=== PATIENT | male | born 1990 | race Caucasian/White ===

== ENCOUNTER 2017-12-04 16:24 | Emergency (ER) | payer OTHER, MEDICAID ==
[2017-12-04 17:07] LABS: PLATELET COUNT 247 10^3/uL (150-400)
--- NOTE | 2017-12-04 17:11 | EDPHY ---
H & P Stated Complaint: Found under a blanket in field talking to cows per [employer] - Personal History Current Tetanus/Diphtheria Vaccine: Yes Current Tetanus Diphtheria and Acellular Pertussis (TDAP): Yes - Medical/Surgical History Hx Asthma: No Hx Chronic Respiratory Disease: No Hx Diabetes: No Hx Cardiac Disease: No Hx Renal Disease: No Hx Cirrhosis: No Hx Alcoholism: No Hx HIV/AIDS: No Hx Splenectomy or Spleen Trauma: No Other PMH: ankle surgery - Social History Smoking Status: Never smoked Time Seen by Provider: 12/04/17 16:39 HPI/ROS: Chief Complaint: Altered mental status HPI: 27-year-old male found laying on open space in the field under a blanket talking to cow's. Patient had rambling conversation and seemed to be delusional per police. He was placed on a mental health hold. Patient right now denies being suicidal. He is not depressed. Denies auditory or visual hallucinations. Does not have a history of mental illness per his report. Denies alcohol use or smoking. Has recently quit using marijuana. No fevers or chills. No falls or head injuries. He is awake and alert. He is loc for safety. He is oriented to person place and time. ROS: 10 point Review of Systems is negative except as noted in the HPI. PMH: Denies Social History: No smoking, no alcohol, former marijuana user Family History: non-contributory Physical Exam: Gen: Awake, Alert, disheveled, mildly pressured speech HEENT: Nose: no rhinorrhea Eyes: PERRLA, EOMI Mouth: Moist mucosa Neck: Supple, no JVD Chest: nontender, lungs clear to auscultation Heart: S1, S2 normal, no murmur Abd: Soft, non-tender, no guarding Back: no CVA tenderness, no midline tenderness Ext: no edema, non-tender Skin: no rash Neuro: CN II-XII intact, Sensation grossly intact, Strength 5/5 in bilateral upper and lower extremities (Mick Chung) Constitutional: Initial Vital Signs Temperature (C) 36.6 C 12/04/17 16:24 Heart Rate 69 12/04/17 16:24 Respiratory Rate 19 12/04/17 16:24 Blood Pressure 117/96 H 12/04/17 16:24 O2 Sat (%) 95 12/04/17 16:24 O2 Delivery Mode Room Air Allergies/Adverse Reactions: No Known Allergies Allergy (Verified 03/26/16 18:40) Home Medications: Medication Instructions Recorded Cyclobenzaprine [Flexeril 10 MG 10 mg PO TID #90 tab 04/03/16 (*)] Haloperidol [Haldol 10 MG (*)] 20 mg PO HS #60 tab 04/03/16 Propranolol HCl [Inderal 20mg (*)] 20 mg PO BID PRN #60 tab 04/03/16 Trihexyphenidyl HCl 5 mg PO BID #60 tab 04/03/16 [Trihexyphenidyl 2MG (*)] Zolpidem Tartrate [Ambien 10 mg] 10 mg PO HS PRN #30 tablet 04/03/16 traZODone [traZODone 150MG (*)] 150 mg PO HS #30 tab 04/03/16 Medical Decision Making ED Course/Re-evaluation: Patient is medically cleared for mental health evaluation. Patient has been seen by mental health military pay clerk. Patient is gravely disabled from acute psychosis. They will look for placement. Dr. Romano, psychiatry has been consulted. She will possibly be able to accept for transfer in the morning. At this time she is requesting 2 mg of oral Ativan and 10 mg of oral Zyprexa if the patient is willing to take it. [address] patient signed out to Dr. Cancino pending placement. (Mick Chung) 0622: No acute events overnight. Patient has been sleeping. Patient waiting inpatient psychiatric hospitalization. Medically cleared. Patient signed over to Dr. Watkins at 7:00 a.m. shift change. Acutely psychotic. (Jaswinder Cancino) - Data Points Laboratory Results: Laboratory Results 12/04/17 16:37 12/04/17 16:37 Medications Given: Discontinued Medications Lorazepam (Ativan) 2 mg PO EDNOW ONE Stop: 12/04/17 21:54 Last Admin: 12/04/17 22:34 Dose: 2 mg Olanzapine (Olanzapine) 10 mg PO ONCE ONE Stop: 12/04/17 21:54 Last Admin: 12/04/17 22:35 Dose: 10 mg Departure - Departure Clinical Impression: Acute psychosis Condition: Fair Referrals: Patient,NotPresent [Primary Care Provider] - As per Instructions
[2017-12-04] MEDS: OLANZapine 5 MG TAB PO ONE ×2 (22:29→22:35)
[2017-12-04] MEDS: LORazepam 1 MG TAB PO ONE ×2 (22:29→22:34)
[2017-12-05 07:54] VITALS: RESP 16
[2017-12-05 12:23] VITALS: BP 109/86; PULSE 90; TEMP 98.2; O2SAT 97
== END 2017-12-05 12:21 ==
DX: F23 Brief psychotic disorder (principal)
CPT/HCPCS: 80305; G0480

== ENCOUNTER 2018-09-14 18:05 | Inpatient (IN) | payer OTHER ==
[2018-09-14] MEDS ORDERED: HALOPERIDOL LACT 5 MG/ML INJ IM ONE (18:16)
--- NOTE | 2018-09-14 18:20 | EDPHY ---
H & P - Medical/Surgical History Hx Asthma: No Hx Chronic Respiratory Disease: No Hx Diabetes: No Hx Cardiac Disease: No Hx Renal Disease: No Hx Cirrhosis: No Hx Alcoholism: No Hx HIV/AIDS: No Hx Splenectomy or Spleen Trauma: No Other PMH: ankle surgery - Social History Smoking Status: Never smoked Time Seen by Provider: 09/14/18 18:09 HPI/ROS: CHIEF COMPLAINT: M1 HISTORY OF PRESENT ILLNESS: 28-year-old homeless male arrives via police on an M1 hold from [facility] after he was noted to be smelling of urine, rapid, pressured speech with flight of ideas, deemed to be gravely disabled. Patient is unable to provide any information as he has rapid speech, flight of ideas. He denies suicidal or homicidal ideation. No reports of trauma. No falls. REVIEW OF SYSTEMS: 10 systems reviewed and negative with the exception of the elements mentioned in the history of present illness PAST MEDICAL & SURGICAL HISTORY: No pertinent medical or surgical history SOCIAL HISTORY: Denies illicit drug use PHYSICAL EXAM (Prior to examination, patient consented to physical exam, hands were washed and my usual and customary physical exam procedures followed) 1) GENERAL: Poorly kept, 2) HEAD: Normocephalic, atraumatic, no abrasion laceration. 3) HEENT: Pupils equal, round, reactive to light bilaterally. Sclera anicteric. Nasopharynx, oropharynx, clear, no lesions. Moist mucous membranes. E 4) NECK: Full range of motion, no meningeal signs. 5) LUNGS: Clear auscultation bilaterally, no wheezes, no rhonchi, no retractions. 6) HEART: Regular rate and rhythm, no murmur, no heave, no gallop. 7) ABDOMEN: No guarding, no rebound, no focal tenderness, 8) MUSCULOSKELETAL: Moving all extremities, no focal areas of tenderness, no obvious trauma. No peripheral edema or discoloration. 9) BACK:, no obvious trauma, no visual or palpable abnormality. 10) SKIN: No rash, no petechiae. 11) Psychiatric: He is agitated, has rapid pressured speech with flight of ideas, appears to be responding to internal stimuli. DIFFERENTIAL DIAGNOSIS: In no particular include but limited to psychosis, zenobia, depression, polysubstance abuse (Obey Breen) Constitutional: Initial Vital Signs Temperature (C) 36.8 C 09/14/18 18:05 Heart Rate 136 H 09/14/18 18:05 Respiratory Rate 20 09/14/18 18:05 Blood Pressure 156/119 H 09/14/18 18:05 O2 Sat (%) 94 09/14/18 18:05 O2 Delivery Mode Room Air Allergies/Adverse Reactions: No Known Allergies Allergy (Verified 03/26/16 18:40) Home Medications: Medication Instructions Recorded Cyclobenzaprine [Flexeril 10 MG 10 mg PO TID #90 tab 04/03/16 (*)] Haloperidol [Haldol 10 MG (*)] 20 mg PO HS #60 tab 04/03/16 Propranolol HCl [Inderal 20mg (*)] 20 mg PO BID PRN #60 tab 04/03/16 Trihexyphenidyl HCl 5 mg PO BID #60 tab 04/03/16 [Trihexyphenidyl 2MG (*)] Zolpidem Tartrate [Ambien 10 mg] 10 mg PO HS PRN #30 tablet 04/03/16 traZODone [traZODone 150MG (*)] 150 mg PO HS #30 tab 04/03/16 Medical Decision Making ED Course/Re-evaluation: 6:19 p.m.: Patient is acutely agitated, appears to be acutely psychotic. There is no evidence of acute head injury. Will administer intramuscular Haldol in order to more adequately assess patient and obtain diagnostic studies. I reviewed his old medical records. I saw this patient independently based on established practice protocols. Care of patient under supervision of secondary supervising physician Dr Kameron Roman with whom I discussed case. 7:30 p.m.: Re-evaluation, patient calm cooperative 9 pm: calm, cooperative Midnight: Care turned over to Dr. Jaswinder Cancino (Obey Breen Trisha) I did not see this patient while he was in the emergency department. However his care was discussed with the PA while the patient was in the department. I agree with treatment plan and management (Kameron Roman) 0701: Patient here on M1 hold gravely disable, psychotic. Pending pending placement. Signed over at 7:00 a.m. Shift change to Dr. Dillard. (Jaswinder Cancino) Other Provider: I assumed care of the patient at 0700am. 9:00 a.m.: The patient has been accepted for inpatient psychiatric hospitalization at [facility] by Delvis Timmons. I have filled out the EMTALA transfer form. (Jin Dillard) - Data Points Laboratory Results: Laboratory Results 09/14/18 18:14 09/14/18 18:14 09/15/18 05:00 Urine Opiates Screen NEGATIVE (NEGATIVE) Urine Barbiturates NEGATIVE (NEGATIVE) Ur Phencyclidine Scrn NEGATIVE (NEGATIVE) Ur Amphetamine Screen NEGATIVE (NEGATIVE) U Benzodiazepines Scrn NEGATIVE (NEGATIVE) Urine Cocaine Screen NEGATIVE (NEGATIVE) U Marijuana (THC) Screen NEGATIVE (NEGATIVE) Medications Given: Discontinued Medications Haloperidol Lactate (Haldol Injection) 5 mg IM EDNOW ONE Stop: 09/14/18 18:17 Last Admin: 09/14/18 18:28 Dose: 5 mg Departure - Departure Disposition: [facility] IP Clinical Impression: Psychosis Condition: Fair
[2018-09-14 18:22] LABS: PLATELET COUNT 339 10^3/uL (150-400)
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
--- NOTE | 2018-09-15 09:44 | ASMTTCLDSP ---
TLC Discharge Disposition Disposition: Answers: Admit Disposition Notes: Notes: Admit 3N. Discharge Concerns/Recommendations: Notes: In consultation with [facility] ED physician, Jeff Dillard MD and on-call advanced psychiatric nurse practitioner, Delvis Timmons APN, both concurred that pt appears to meet 27-65 criteria requiring psychiatric hospitalization as pt appears to be gravely disabled due to a mental illness condition. Pt unable to sign the 3N prohibited belongings list while in the ED. Was patient given the Answers: Yes Inpatient Behavioral Health Prohibited Belongings List while in the ED? For inpatient Delvis Timmons APN admission, the following psychiatrist agreed to accept patient for admission to Behavioral Health ([facility]): Type of Hold: Answers: M1/72-hour Hold Hold initiated by: Answers: Police Date Signed: 09/15/2018 09:43 AM Electronically Signed By:Glen Spear
[2018-09-15] MEDS ORDERED: OLANZapine DISINTEGR 10 MG TAB PO PRN (10:53)
[2018-09-15] MEDS ORDERED: NICOTINE POLACRILEX 2 MG GUM B PRN (10:53)
[2018-09-15] MEDS ORDERED: MAG HYDROX/AL HYDROX/SIMETH 30 ML UDCUP PO PRN (10:53)
[2018-09-15] MEDS ORDERED: ACETAMINOPHEN 325 MG TAB PO PRN (10:53)
[2018-09-15] MEDS ORDERED: LORazepam 0.5 MG TAB PO PRN ×2 (10:53→15:09)
[2018-09-15] MEDS ORDERED: MAGNESIUM HYDROXIDE 30 ML UDCUP PO PRN (10:53)
[2018-09-15] MEDS ORDERED: HALOPERIDOL 5 MG TAB PO ONE (11:34)
[2018-09-15] MEDS ORDERED: BENZTROPINE MESYLATE 1 MG TAB PO ONE (11:35)
--- NOTE | 2018-09-15 12:09 | ASMTLCPROG ---
Notes Note: Notes: DMS - V Diagnosis: Schizophrenia, paranoid type 295.90 (F20.9) Date Signed: 09/15/2018 12:08 PM Electronically Signed By:Glen Spear
--- NOTE | 2018-09-15 12:17 | ASMTBHMTP ---
Master Treatment Plan Master Treatment Plan Answers: Impaired Reality for: Date: 09/15/2018 Diagnosis on Admission: Schizophrenia Paranoid Type Expected length of stay: 3-5 days Reason for admission: Notes: Per Report: Pt is a 27 yo, unemployed, homeless, male, with well known long history of schizophrenia, paranoid type, brought to [facility] ED from [facility] on M1 Hold which noted: Mr. Retana was received at [facility] and was filthy and in urine soaked clothing. He present as angry, agitated, and nonsensical. He has spent much of the day screaming nonsensically. He is unable to respond to basic commands or simple instructions. Mr. Retana appears unable to meet his most basic needs, clearly meeting the criteria for gravely disabled. [facility] reported the reason for his [facility] detainment was for an evaluation for restraining order, but unable to identify who initiated any restraining order. Pt has a history of M1 holds and hospitalizations. Per [facility], pt is not currently an open client. Their last records correspond to when pt was last hospitalized at [facility] in November 2017. Pt has been an open client with [facility] since 2008, under the psychiatric care of Dr. Hough. Per prior records, SOC described pt in the past as extremely paranoid and feels that all people outside their family are part of the illegal sex trafficking trade. Pt was first diagnosed with schizophrenia at age 17, per discharge paperwork from [facility] dated December 2012. Patient's stated presenting problems: Notes: "I don't konw." Patient's goals for treatment: Notes: to get rested and get rest Patient's strengths: Notes: non Identify supports outside of hospital: Notes: I have a sister that lives in [place] Discharge criteria: Notes: Psychotic symptoms will be reduced or eliminated with return to baseline functioning in affect, thinking and behavior prior to discharge. Initial disposition plan/considerations: Notes: have my sister or "girlfriend," come and pick me up. Master Treatment Plan Required Signatures Psychiatrist signature: Answers: Psychiatrist: RN on-shift signature: Answers: RN: Patient signature: Answers: Patient: Date Signed: 09/15/2018 12:16 PM Electronically Signed By:Kt Dominguez
--- NOTE | 2018-09-15 14:58 | BCON ---
INTERNAL MEDICINE CONSULTATION DATE OF CONSULTATION: 09/15/2018 REFERRING PHYSICIAN: Delvis Timmons NP REASON FOR REFERRAL: Medical clearance for inpatient behavioral health stay. HISTORY OF PRESENT ILLNESS: This man came to the emergency department yesterday brought by police from long-term. He was smelling of urine and had rapid pressured speech with flight of ideas. He was deemed grade gravely disabled and was admitted for further psychiatric care. He currently is without any acute complaints. PAST MEDICAL HISTORY: 1. Paranoid schizophrenia. 2. Ankle injury with ankle surgery remotely. MEDICATIONS: Prior to admission: 1. Trazodone 150 mg p.o. q.h.s. 2. Zolpidem 10 mg p.o. q.h.s. p.r.n. 3. Trihexyphenidyl 5 mg p.o. b.i.d. 4. Propranolol 20 mg p.o. b.i.d. p.r.n. 5. Haloperidol 20 mg p.o. q.h.s. 6. Cyclobenzaprine 10 mg p.o. t.i.d. p.r.n. ALLERGIES: There are no known drug allergies. SOCIAL HISTORY: He is homeless. He is a nonsmoker. He has not had a profession. FAMILY HISTORY: Noncontributory. REVIEW OF SYSTEMS: He denies pain, cough, dyspnea, fevers, chills, nausea, vomiting, constipation, or diarrhea. Chart review documents approximately 7.5 kg weight gain since November of this year. Otherwise, a 10-point review of systems is negative. PHYSICAL EXAM: VITAL SIGNS: Blood pressure is 117/76, heart rate is 108, respiratory rate is 14, oxygen saturation is 95% on room air. Temperature is 36.4 degrees centigrade. His weight is 76.7 kg for a body mass index of 22.3. GENERAL: This is a well-nourished, well-developed man, appears his chronologic age, dressed in a green hospital smock and scrub pants, cooperative, and in no acute distress. HEENT: Extraocular movements are intact. Pupils are equal, round, reactive to light. Mucous medications are moist. Dentition in good condition. NECK: Supple. HEART: There is a regular rate and rhythm with no murmurs, rubs, or gallops. LUNGS: Clear to auscultation bilaterally. ABDOMEN : Benign. EXTREMITIES: There is no cyanosis, clubbing, or edema. NEUROLOGIC : He is alert. Orientation was not checked. There is no focal weakness. Sensation is intact to light touch. LABORATORY DATA: From the emergency department: CBC showed an elevated white blood cell count at 13.31. There were elevations of absolute neutrophils, lymphocytes, and monocytes with no left shift. It was otherwise within normal limits. Serum chemistry revealed normal renal function, electrolytes, and liver functions. Cholesterol panel was quite benign with a low cholesterol at 135, an LDL of 71, and an HDL of 54. Hemoglobin A1c was normal at 5.9. Toxicology screen in the serum was negative for salicylates, acetaminophen, or ethyl alcohol and the urine was negative for any substances of abuse. ASSESSMENT/RECOMMENDATIONS: 1. Mental health issues. Pending further evaluation and management per Psychiatry the mental health team. 2. Weight gain. He is normal weight. This may be due to psychiatric medications and is of no medical concern at present. 3. Leukocytosis. Likely due to the acute stress of being in the long-term and then in the hospital. 4. Tachycardia. Unclear etiology. He may have dehydration, though this is not reflected on his basic metabolic profile. Advise observation and consider further evaluation if he remains tachycardic. I see no medical contraindications to this patient's continued stay on the inpatient behavioral health unit or to any psychiatric medications or procedures. Thank you very much for including me in the care of this patient and please do not hesitate to contact me or the hospitalist service should there be need for further medical evaluation. /[id number]/MODL MTDD
[2018-09-15] MEDS ORDERED: PALIPERIDONE 3 MG TAB.ER PO ONE (15:09)
[2018-09-15] MEDS ORDERED: HALOPERIDOL 5 MG TAB PO PRN (15:09)
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
[2018-09-15] MEDS: BENZTROPINE MESYLATE 1 MG TAB PO SCH (20:11)
[2018-09-15] MEDS ORDERED: HALOPERIDOL 5 MG TAB PO SCH (21:00)
--- NOTE | 2018-09-16 06:39 | PDMN ---
Medical Necessity Medical necessity: Pt meets INPT criteria per and [facility] B-[id number] Schizophrenia (M1 hold).
--- NOTE | 2018-09-16 07:50 | SOAPPROG ---
SOAP Progress Note Assessment/Plan: Assessment: Schizophrenia, paranoid type. Improvement noted. (see subjective/objective note ). Patient is not safe to discharge at this time as patient continues to exhibit signs of psychosis, and express psychosis symptoms. Patient requires continued inpatient care because of current psychosis, recent crisis that led to this hospitalization, and requires inpatient level of care to stabilize in order to no longer be gravely disabled due to mental illness. Patient could benefit from continued inpatient hospitalization for crisis stabilization, safety, and medication evaluation. Patient could benefit from continued hospitalization for administration of QUEEN due to long history of non-adherence; objective to increase medication adherence, reduce risk of lapse/decompensation , and rehospitalization. Plan: (1) Psychotropic medications: After reviewing options, risks, and benefits patient agrees to Invega Sustenna QUEEN with first loading dose 234 mg IM today and second loading dose 156 mg IM on Wednesday prior to discharge. Patient agrees to continue oral Invega 6 mg po QD for acute stabilization. Patient reports tolerating Risperdal in the past for several months. No other medication changes at this time as more time is needed to determine ongoing tolerability and efficacy. Plan is to continue to observe patient for response and side effects from medications, and ongoing monitoring and evaluation. (2) Review with patient informed consent and recommendations for psychotropic medication treatment listed below (3) Labs: no additional labs at this time (4) Therapy: continue milieu and group therapy (5) Further investigation including gathering information from patients relatives and review of past case records to inform treatment plan. (6) Safety/Wellness plan and follow-up outpatient appointments to be established prior to discharge. Next steps are for patient to meet with wound care physician to plan a safe discharge plan and establish outpatient services for ongoing treatment. (7) Confer with inpatient treatment team regarding treatment plan. (8) Legal status: M1; agrees to voluntary when M1 expires (9) Consider discharge on Wednesday if patient is in stable condition, safe, and has a safe discharge plan. PSYCHOTROPIC MEDICATION TREATMENT INFORMED CONSENT and RECOMMENDATIONS: Review nature of condition, diagnosis, and prognosis. Review nature and purpose of psychotropic medication treatment. Review type of psychotropic medications being ordered. Review risk and benefits of psychotropic medication treatment. Review probable length of time patient will need to take medications. Review risk and benefits of not undergoing psychotropic medication treatment. Review alternative treatments to psychotropic medications. Review psychotropic medications contraindications, drug-drug interactions, side effects, and importance of reporting any side effects to a psychiatric provider or nurse during inpatient hospitalization, and upon discharge to patients psychiatric outpatient provider, primary care provider, or other health health care coach. Review importance of asking a nurse, psychiatric provider, or primary care provider any questions or problems concerning the psychotropic medications. Verify patient understands the information that has been provided, and understands, accepts, and agrees to psychotropic medications. Review patients safety plan and importance of patient to report to staff while hospitalized if patient is ever a danger to self/others, or unable to care for self, and upon discharge, the importance for patient to contact [facility] or [facility], or go to the nearest emergency room, if patient is ever a danger to self/others, or unable to care for self. Recommend that upon discharge patient establish medication management treatment with a psychiatric provider, establishes routine therapy appointments, and follow-up with primary care provider. Verify patient understands and agrees to these recommendations. 09/16/18 07:53 Subjective: Following up with patient for evaluation of psychosis and safety. Patient reports, "Doing okay, when can I discharge?" Patient expresses the following psychiatric symptoms severe anxiety. Patient reports taking medications as prescribed, and describes response to medications as good. Patient does not report undesirable side effects from the medications, and agrees to continue current medications. Patient agrees to Invega Sustenna QUEEN with first loading dose 234 mg IM today and second loading dose 156 mg IM on Wednesday prior to discharge. Patient agrees to continue oral Invega 6 mg po QD for acute stabilization. Patient reports tolerating Risperdal in the past for several months. Patient reports appetite as good, and reports eating all meals. Patient describes getting 8 hours of sleep, and reports feeling rested today. Patient states he plans to stay with his girlfriend after discharge on Wednesday. Objective: Vital Signs Temp Pulse Resp BP Pulse Ox 36.9 C 126 H 16 107/73 95 09/16/18 06:00 09/16/18 06:00 09/16/18 06:00 09/16/18 06:00 09/16/18 06:00 NURSING REPORT: Consulted with nursing for update on patients progress in treatment. Nurses report patient is not engaged in treatment, is not attending groups, slept 10 hours, withdrawn to room; expresses the following psychiatric symptoms: severe anxiety, exhibits the following psychiatric symptoms: withdrawn , flat, paranoid; is eating all meals, is agreeable to medications and taking as prescribed with no report of side effects, with no s/s of EPS/akathisia, and denies SI/HI, denies A/V hallucinations, and denies delusions. 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 MSE: The patient is a well-nourished male looking stated chronological age. Attire is inappropriate and dress is casual and hospital garb combination. Grooming status is inappropriate and disheveled. Ambulation is independent. Gait is normal and coordinated. Posture is normal and relaxed. Eye contact is appropriate. Motor activity is appropriate with purposeful, organized, coordinated movements; with no involuntary movements. Attitude is cooperative; patient appears paranoid when answering interview questions. Patient appears distractible and does not relate well to this interviewer. Language production is spontaneous. R/R/V are normal. Articulation is clear. Patient reports mood as okay with incongruent and expansive affect. Patients thought process is linear, logical, with loose associations, disorganized at times during interview. Patient does not report suicidal/homicidal thoughts, ideas, or plans. Patient denies auditory, visual hallucinations. Patient denies delusions. Patient does not appear to be attending to internal stimuli. Patients attention and concentration are poor. Patient is oriented to person, place, time, and situation. Patients insight and judgement are poor. Patient has no apparent dysfunction in recent or remote memory noted, and no evidence of gross cognitive dysfunction noted at any point during the interview. - Time Spent With Patient Time Spent With Patient: 15 minutes, met with patient individually. - Pending Discharge Pending Discharge Within 24 Hours: No Pending Discharge Within 48 Hours: No ICD10 Worksheet Patient Problems: Problems Problem Status Onset Psychosis Acute Acute psychosis Acute Schizophrenia Acute
[2018-09-16] MEDS ORDERED: PALIPERIDONE PALMITATE 234 MG/1.5 ML SYR IM ONE (09:00)
[2018-09-16] MEDS: PALIPERIDONE 3 MG TAB.ER PO SCH (09:59)
[2018-09-16] MEDS: BENZTROPINE MESYLATE 1 MG TAB PO SCH ×2 (09:59→20:27)
[2018-09-17] MEDS: BENZTROPINE MESYLATE 1 MG TAB PO SCH ×2 (08:13→20:31)
[2018-09-17] MEDS: PALIPERIDONE 3 MG TAB.ER PO SCH (08:13)
--- NOTE | 2018-09-17 14:44 | ASMTBHDC ---
Notes Note: Notes: Pt. reports feeling "alright". Pt. stated he "slept alright". Pt. reports wanting more food on his trays. Pt. reports no issues with his current medications, stating "seems like helping me sleep". Pt. stated he has not attending any groups, due to being sleepy. Pt. stated he plans to discharge on Wednesday, stating "that'll be good". Pt. stated he may be able to have someone pick him up, but if not he will need a bus pass. Pt. reports no problems while on the unit. Pt. stated he got his first injection on Wednesday. Pt. denied SI, HI, AVH and paranoia. Pt. presents as alert, calm, cooperative, fair eye contact, unkempt, and with a mostly pleasant demeanor. Staff report pt. sleeping 13 hours and being medication compliant. Date Signed: 09/17/2018 02:43 PM Electronically Signed By:Lexie Mchugh
--- NOTE | 2018-09-17 17:38 | SOAPPROG ---
SOAP Progress Note Assessment/Plan: Assessment: Per Delvis Timmons's note: Schizophrenia, paranoid type. Improvement noted. (see subjective/objective note ). Patient is not safe to discharge at this time as patient continues to exhibit signs of psychosis, and express psychosis symptoms. Patient requires continued inpatient care because of current psychosis, recent crisis that led to this hospitalization, and requires inpatient level of care to stabilize in order to no longer be gravely disabled due to mental illness. Patient could benefit from continued inpatient hospitalization for crisis stabilization, safety, and medication evaluation. Patient could benefit from continued hospitalization for administration of QUEEN due to long history of non-adherence; objective to increase medication adherence, reduce risk of lapse/decompensation , and rehospitalization. Plan: (1) Psychotropic medications: After reviewing options, risks, and benefits patient agrees to Invega Sustenna QUEEN with first loading dose 234 mg IM today and second loading dose 156 mg IM on Wednesday prior to discharge. Patient agrees to continue oral Invega 6 mg po QD for acute stabilization. Patient reports tolerating Risperdal in the past for several months. No other medication changes at this time as more time is needed to determine ongoing tolerability and efficacy. Plan is to continue to observe patient for response and side effects from medications, and ongoing monitoring and evaluation. PLAN: 09/17/18 17:35 1. Patient received Invega Sustenna IM on Wednesday. He is scheduled to get a 2nd injection on Wednesday. 2. According to Delvis Timmons, patient has tolerated and benefited from Risperdal in past. It's unclear whether he's been treated with Invega or Invega QUEEN in past. So far, he has shown no adverse effects from PO Invega or IM Sustenna while in hospital. Will continue to monitor. 3. CCM Subjective: Patient isolates in room most of the day, but he did come out of room to eat. He denies any SE's from Invega or from QUEEN shot he received on Wednesday. Objective: Vital Signs Temp Pulse Resp BP Pulse Ox 36.5 C 130 H 16 145/56 H 94 09/17/18 06:00 09/17/18 06:00 09/17/18 06:00 09/17/18 06:00 09/17/18 06:00 MSE: Affect: Flat Mood: "OK" TP: Disorganized TC: Denies SI/HI Insight/ Judgment: Impaired - Time Spent With Patient Time Spent With Patient: 15" - Pending Discharge Pending Discharge Within 24 Hours: No Pending Discharge Within 48 Hours: No ICD10 Worksheet Patient Problems: Problems Problem Status Onset Non-adherence to medical treatment Acute Psychosis Acute Acute psychosis Acute Schizophrenia Acute
[2018-09-18] MEDS: PALIPERIDONE 3 MG TAB.ER PO SCH (08:45)
[2018-09-18] MEDS: BENZTROPINE MESYLATE 1 MG TAB PO SCH ×2 (08:45→20:49)
--- NOTE | 2018-09-18 13:56 | ASMTBHDC ---
Notes Note: Notes: Pt. reports feeling "fine". Pt. stated he "slept pretty well". Pt. stated he is discharging tomorrow. When CC mentioned a second injection, pt stated he already had his Invega injection. Pt. stated he can get himself to any follow up appointments and is able to fill and take his medications. Pt. stated he will need a bus ticket and prescriptions at discharge. Pt. denied SI, HI, AVH and paranoia. Pt. stated he is willing to attend a treatment team meeting on Wednesday. Pt. presents as alert, calm, fair eye contact, focused on discharge and a mostly pleasant demeanor. Staff report pt. sleeping 12.5 hours, being medication complaint and withdrawn to his room most of the weekend. Date Signed: 09/18/2018 01:56 PM Electronically Signed By:Lexie Mchugh
--- NOTE | 2018-09-18 17:08 | SOAPPROG ---
SOAP Progress Note Assessment/Plan: Assessment: Per Delvis Timmons's note: Schizophrenia, paranoid type. Improvement noted. (see subjective/objective note ). Patient is not safe to discharge at this time as patient continues to exhibit signs of psychosis, and express psychosis symptoms. Patient requires continued inpatient care because of current psychosis, recent crisis that led to this hospitalization, and requires inpatient level of care to stabilize in order to no longer be gravely disabled due to mental illness. Patient could benefit from continued inpatient hospitalization for crisis stabilization, safety, and medication evaluation. Patient could benefit from continued hospitalization for administration of QUEEN due to long history of non-adherence; objective to increase medication adherence, reduce risk of lapse/decompensation , and rehospitalization. Plan: (1) Psychotropic medications: After reviewing options, risks, and benefits patient agrees to Invega Sustenna QUEEN with first loading dose 234 mg IM today and second loading dose 156 mg IM on Wednesday prior to discharge. Patient agrees to continue oral Invega 6 mg po QD for acute stabilization. Patient reports tolerating Risperdal in the past for several months. No other medication changes at this time as more time is needed to determine ongoing tolerability and efficacy. Plan is to continue to observe patient for response and side effects from medications, and ongoing monitoring and evaluation. PLAN: 09/17/18 17:35 1. Patient received Invega Sustenna IM on Wednesday. He is scheduled to get a 2nd injection on Wednesday. 2. According to Delvis Timmons, patient has tolerated and benefited from Risperdal in past. It's unclear whether he's been treated with Invega or Invega QUEEN in past. So far, he has shown no adverse effects from PO Invega or IM Sustenna while in hospital. Will continue to monitor. 3. [facility] PLAN: 09/18/18 17:05 1. Scheduled to receive 2nd dose of Invega Sustenna on Wednesday. 2. Still taking Invega PO 6m daily. 3. Still denies any adverse effects from Invega. 4. Has been sleeping and isolating in his room. Subjective: Patient slept 12 hrs last night, and was still sleeping this AM and afternoon when MD went to check on him. He did leave his room to eat meals, but those were the only times he was out of his room. He has not participated in milieu activities or groups since admission. Objective: Vital Signs Temp Pulse Resp BP Pulse Ox 36.5 C 105 H 16 96/76 L 95 09/18/18 06:00 09/18/18 06:00 09/18/18 06:00 09/18/18 06:00 09/18/18 06:00 MSE: Affect: Flat Mood: "OK" TP: Disorganized TC: Denies any SI/HI Insight/ Judgment: Poor - Time Spent With Patient Time Spent With Patient: 15" - Pending Discharge Pending Discharge Within 24 Hours: No Pending Discharge Within 48 Hours: No ICD10 Worksheet Patient Problems: Problems Problem Status Onset Non-adherence to medical treatment Acute Psychosis Acute Acute psychosis Acute Schizophrenia Acute
[2018-09-19 07:04] VITALS: BP 115/78
[2018-09-19] MEDS ORDERED: PALIPERIDONE PALMITATE 156 MG/ML SYR IM ONE (09:00)
[2018-09-19] MEDS: PALIPERIDONE 3 MG TAB.ER PO SCH (09:31)
[2018-09-19] MEDS: BENZTROPINE MESYLATE 1 MG TAB PO SCH (09:35)
--- NOTE | 2018-09-19 12:09 | BDS ---
REASON FOR ADMISSION: From the ED note dated 09/14/2018, patient is a 28-year- old homeless male that arrived via police on an M1 hold from prison after he was noted to be smelling of urine, rapid pressured speech with flight of ideas, and was deemed to be gravely disabled. Patient was unable to provide any information due to rapid speech and flight of ideas while in the emergency department. During admission exam, patient denied suicidal or homicidal ideation. Patient reported no trauma, no falls prior to presentation at the ED. Patient was admitted involuntarily on an M1 hold due to being gravely disabled due to a mental illness. Patient was admitted for safety, crisis stabilization, and medication evaluation. ADMISSION DIAGNOSES: 1. Schizophrenia. 2. Acute psychosis. 3. Non-adherence to medical treatment. ADMISSION PHYSICAL EXAM: Patient was seen by Dr. George on 09/15/2018, for an internal medicine consultation for medical clearance for inpatient Behavioral Health stay. Dr. George reported he saw no medical contraindications to patient 's continued stay on the inpatient behavioral health unit or to any psychiatric medications or procedures. For further details, please see Internal Medicine consultation note dated 09/15/2018. ADMISSION LABS: From the emergency department, CBC showed an elevated white blood cell count at 13.31. There were elevations of absolute neutrophils, lymphocytes, and monocytes with no left shift. It was, otherwise, within normal limits. Serum chemistry revealed normal renal function, electrolytes, and liver functions. Cholesterol panel was quite benign, with low cholesterol at 135, LDL of 71, and HDL of 54. Hemoglobin A1c was normal at 5.9. Toxicology screen in the serum was negative for salicylate, acetaminophen, or ethyl alcohol, and in the urine was negative for any substances of abuse screened. MAJOR PROCEDURES/TESTS: None. HOSPITAL COURSE: The most prominent symptoms and behaviors while patient was here were agitation, irritability. Patient was withdrawn to his room. Presented with disorganized thought content and behavior. Target symptoms during hospitalization, psychosis. Treatment modalities utilized were milieu and group therapy. After reviewing options risks and benefits with the patient , patient agreed to a trial of Invega 6 mg p.o. daily to target psychosis symptoms. Invega oral medication was tolerated with no report of side effects and with good response. Patient reported being on Risperdal in the past and reported he tolerated this medication for several months when taken as directed. Due to patient's long history of medication nonadherence, patient did agree to Invega Sustenna. Invega Sustenna 234 mg IM was administered for the first loading dose on 09/16/2018. Patient tolerated this administration with no report of side effects. Patient agreed to the second loading dose of Invega Sustenna 156 mg IM. This medication was administered on 09/19/2018. Medication was tolerated with no report of side effects and with good response. Patient has improved considerably with no signs of psychiatric symptoms and no psychiatric symptoms expressed at time of discharge. Patient reports he has improved since admission, states to be in stable condition, feels safe to discharge, and he contracts for safety. Patient's response to treatment was good. There were no adverse or unexpected results of treatment. The patient was safe throughout his stay, active in treatment, engaged in groups, and was appropriate with staff and other patients. Patient met with the treatment team prior to discharge to assess readiness to discharge and review discharge plan. The treatment team consensus is Patient is in stable condition, has a safe discharge plan, and is ready to discharge today. CONDITION AT DISCHARGE: Patient is in stable condition and is no longer a danger to self or others, and is not gravely disabled due to mental illness. Patient is no longer in need of inpatient level of care, and can be safely and effectively treated within the community. The patients level of risk at time of discharge is low. MSE: The patient is casually dressed and with good hygiene , and looks stated age. Patient is sitting, posture is upright, and position is relaxed. Patient appears awake, alert, and responds appropriately and reasonably during interview. Patient is engaged, relates well to interviewer, and emotional facial expression is appropriate to situation and changes appropriately with topic. Patient is cooperative, makes comfortable eye contact , and movements are voluntary, deliberate, coordinated, and smooth and even with no inappropriate movements. Patient makes laryngeal sounds effortlessly and shares conversation appropriately; pace of conversation is appropriate, and stream of talking is fluent; articulation is clear and understandable; word choice is effortless and appropriate for education level; completes sentences, occasionally pausing to think; rate and volume are appropriate for interview and setting. Patient reports mood as euthymic. Patients affect is stable with full variable range, congruent with mood, and appropriate to speech and circumstances. Patient has linear and logical thinking, with no loose associations, tangential thought, thought blocking, concrete thinking, or any other signs of formal thought disorder. Patient denies suicidal and homicidal ideation, and denies hallucinations and delusions. Patient appears to be a reliable historian with sound judgement and good insight into current condition. Patient has no apparent dysfunction in recent or remote memory noted , and no evidence of gross cognitive dysfunction noted at any point during the interview. DISCHARGE DIAGNOSIS: Schizophrenia. CURRENT MEDICATIONS: After reviewing options, risks, and benefits with the patient, patient agrees to continue: 1. Invega 6 mg p.o. daily and this is to be continued for stabilization and patient to follow up with outpatient provider to taper and continue monotherapy on Invega Sustenna after patient stabilizes. 2. Cogentin 1 mg p.o. b.i.d. Patient requests prescriptions for these medications at time of discharge. Prescriptions for 30 days for each medication are provided. Prescriptions are reviewed with patient and the patient's sister at time of discharge to ensure accuracy and patient understanding. 3. Invega Sustenna: second loading dose 156 mg IM administered on 09/19/18 DISPOSITION: Patient left hospital independently and voluntarily with his sister and plans to follow up at the [facility] to establish outpatient medication management as patient states he wants to continue the Invega long-acting injectable medication. FOLLOWUP: marketing support coordinator reports the appropriate outpatient follow-up services have been established and outpatient appointments have been scheduled. The patient received written instructions with times and dates of outpatient follow-up appointments. The following follow-up recommendations were provided to the patient at discharge: Continue psychotropic medications as prescribed and attend appointments as scheduled. Report any side effects to a psychiatric outpatient provider, a primary care provider, or other health career technical education instructor. Address any questions or problems concerning the psychotropic medications with a psychiatric outpatient provider, a primary care provider, or other health career technical education instructor. Contact [facility] or [facility], or go to the nearest emergency room, if you are ever a danger to yourself/others, or unable to care for yourself. As soon as possible, establish a routine medication management treatment with a psychiatric provider, establish routine therapy appointments, and follow-up with a primary care provider. LEGAL COURSE: Patient was admitted on an M1 hold for involuntary inpatient psychiatric hospitalization. Patient agreed to stay in the hospital voluntarily and patient discharged today independently and voluntarily with his sister. ATTITUDE AT TIME OF DISCHARGE: The patients attitude was positive at time of discharge, and patient reports looking forward to discharging today. The patient reports he feels safe to discharge, is no longer a danger to himself or others, is in stable condition, and contracts for safety. Patient states he will continue medications as prescribed, and establish medication management treatment with an outpatient provider after discharge. Patient reports he understands the information that has been provided to him, and he understands, accepts, and agrees to psychotropic medications. Patient describes internal protective factors as the coping skills he has learned while hospitalized here, and he plans to continue to practice these coping skills after discharge. FAMILY MEETING: This PERSONNEL INTERVIEWER met with patient and patient's sister at patient's request at time of discharge to review discharge plan. Patient's sister reports patient is safe to discharge and has a safe discharge plan. Patient's sister reports patient is at his baseline and has improved since admission. LABORATORY/RADIOLOGY STUDIES: There were no pending labs or studies at time of discharge. ADVANCED DIRECTIVES: There were no advance directives on file and patient was full code during this hospitalization. The following psychotropic medication treatment informed consent and recommendations were provided to the patient at time of discharge. Patient reports he understands, accepts, and agrees to the information that has been provided. PSYCHOTROPIC MEDICATION TREATMENT INFORMED CONSENT and RECOMMENDATIONS: Review nature of condition, diagnosis, and prognosis. Review nature and purpose of psychotropic medication treatment. Review type of psychotropic medications being prescribed. Review risk and benefits of psychotropic medication treatment. Review probable length of time will need to take medications. Review risk and benefits of not undergoing psychotropic medication treatment. Review alternative treatments to psychotropic medications. Review psychotropic medications contraindications, side effects, and importance of reporting any side effects to a psychiatric provider, primary care provider, or other health career technical education instructor. Review importance of asking a psychiatric provider or primary care provider any questions or problems concerning the psychotropic medications. Review safety plan and the importance to contact [facility] or [facility] , or go to the nearest emergency room, if ever a danger to yourself/others, or unable to care for yourself. Recommend upon discharge to establish routine medication management treatment with a psychiatric provider, establish routine therapy appointments, and follow-up with a primary care provider. Verify patient understands, accepts, and agrees to the information that has been provided. /[id number]/[id number]
== END 2018-09-19 11:28 | disposition home or self-care (01) | DRG 885 ==
LOC: BBEH 09-15 10:35
PROVIDERS: ADMIT Registered Nurse; ATTEND Registered Nurse
DX: F20.0 Paranoid schizophrenia (principal); Z91.14 Patient's other noncompliance with medication regimen; R00.0 Tachycardia, unspecified; Z59.0 Homelessness
CPT/HCPCS: 80305; G0480; J1630; J2426